=== PATIENT | female | born 2000 | race Hispanic/Latino ===

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

== ENCOUNTER 2022-11-23 14:35 | Outpatient (CLI) | payer OTHER | END 2022-11-23 14:36 | disposition home or self-care (01) | LOC: CSHULT 14:35 | PROVIDERS: ATTEND Family Medicine | DX: Z34.82 Encounter for supervision of other normal pregnancy, second trimester (principal); Z3A.22 22 weeks gestation of pregnancy | CPT/HCPCS: 76805 ==

== ENCOUNTER 2023-03-12 12:57 | Inpatient (IN) | payer OTHER ==
[2023-03-12] MEDS ORDERED: fentaNYL 50 mcg/mL 1 mL Vial SLOW IVP PRN (13:35)
[2023-03-12] MEDS ORDERED: hydrALAZINE 20 MG/ML VIAL SLOW IVP PRN (13:35)
[2023-03-12] MEDS ORDERED: HYDROcodone/Acetaminophen 5/325 mg Tablet PO PRN (13:35)
[2023-03-12] MEDS ORDERED: Ibuprofen 800 MG TAB PO PRN (13:35)
[2023-03-12] MEDS ORDERED: Diphenoxylate HCl/Atropine Tablet PO PRN (13:35)
[2023-03-12] MEDS ORDERED: Ondansetron PF 4 MG/2 ML Vial IVP PRN (13:35)
[2023-03-12] MEDS ORDERED: Misoprostol 200 MCG TAB PR PRN (13:35)
[2023-03-12] MEDS ORDERED: Promethazine HCl 25 MG/ML VIAL IM PRN (13:35)
[2023-03-12] MEDS ORDERED: Lidocaine 1% (PF) 30 ML VIAL SC PRN (13:35)
[2023-03-12] MEDS ORDERED: Carboprost 250 MCG/ML AMP IM PRN (13:35)
[2023-03-12] MEDS ORDERED: Acetaminophen 500 MG TAB PO PRN (13:35)
[2023-03-12] MEDS ORDERED: Tranexamic Acid 1,000 MG/10 ML VIAL IVP PRN (13:35)
[2023-03-12] MEDS ORDERED: Oxytocin 30 units/NS 500 ML 500 ML IV SCH ×3 (13:45)
[2023-03-12 15:24] LABS: Creatinine, Urine 61.86 mg/dL (47-110); Protein, Urine Random Quant Less than 10 mg/dL (1-14)
[2023-03-12] MEDS ORDERED: Misoprostol 100 MCG TAB ONE (15:38)
[2023-03-12 15:46] LABS: Hematocrit 35.5 % (34.9-44.5); Mean Corpuscular HGB CONC 33.8 g/dL (32.0-36.0); Mean Corpuscular Hemoglobin 28.6 pg (27.0-33.0); Mean Corpuscular Volume 84.5 fl (81.6-98.3); Mean Platelet Volume 12.5 fl (7.4-10.4); Platelet Count 237 10x3/uL (150-450); RBC Distribution Width 13.2 % (11.5-14.5); White Blood Cell (WBC) Count 9.5 10x3/uL (3.5-10.5)
[2023-03-12 16:14] LABS: ALT (SGPT) 8 U/L (8-55); AST (SGOT) 14 U/L (5-34); Albumin 3.1 g/dL (3.5-5.0); Alkaline Phosphatase 134 U/L (40-110); Anion Gap 14 mmol/L (10-20); BUN (Urea Nitrogen) 12 mg/dL (7.0-18.7); Bilirubin, Total 0.3 mg/dL (0.2-1.2); Calc. Creatinine Clearance 0 mL/min (70-130); Calcium 9.1 mg/dL (7.8-10.44); Carbon Dioxide 17 mmol/L (22-29); Chloride 109 mmol/L (98-107); Estimated GFR 129; Globulin 3.2 g/dL (2.4-3.5); Glucose 80 mg/dL (70-105); Potassium 4.3 mmol/L (3.5-5.1); Protein, Total 6.3 g/dL (6.0-8.3); Sodium 136 mmol/L (136-145)
[2023-03-12 16:29] LABS: Syphilis Antibody Nonreactive (Nonreactive); Syphilis Antibody Index 0.12 S/CO (<1.00 Non-Reactive)
[2023-03-12 16:31] LABS: HBSAg Index 0.17 S/CO (0-0.99); Hep B Surf Ag - L&D Non-Reactive S/CO (NonReactive)
[2023-03-12 19:11] VITALS: BMI 28.5
[2023-03-12] MEDS ORDERED: Misoprostol 100 MCG TAB PO SCH (23:00)
[2023-03-12] MEDS ORDERED: fentaNYL/Ropivacaine Epidural 0 ML ONE (23:25)
[2023-03-12] MEDS: Lactated Ringer's 1,000 ML IV SCH (23:34)
[2023-03-13] MEDS ORDERED: Ketorolac Tromethamine 30 MG (1 mL) VIAL IVP SCH ×2 (00:15→06:00)
[2023-03-13] MEDS ORDERED: diphenhydrAMINE 25 MG CAP PO PRN (02:39)
[2023-03-13] MEDS ORDERED: Oxytocin 30 units/NS 500 ML 500 ML IV SCH (02:39)
[2023-03-13] MEDS ORDERED: Benzocaine-Menthol 82.5 ML CAN TOP PRN (02:39)
[2023-03-13] MEDS ORDERED: Promethazine HCl 25 MG/ML VIAL IM PRN (02:39)
[2023-03-13] MEDS ORDERED: Lanolin Ointment 7 GM TUBE TOP PRN (02:39)
[2023-03-13] MEDS ORDERED: Bisacodyl 10 MG SUPP PR PRN (02:39)
[2023-03-13] MEDS ORDERED: Milk Of Magnesia 30 ML UDCUP PO PRN (02:39)
[2023-03-13] MEDS ORDERED: Boostrix 0.5 ML (Tdap) VIAL (>/=7 yrs of age) IM ONE (02:39)
[2023-03-13] MEDS ORDERED: Preparation H Ointment 28 GM TUBE PR PRN (02:39)
[2023-03-13] MEDS ORDERED: hydrALAZINE 20 MG/ML VIAL SLOW IVP PRN (02:39)
[2023-03-13] MEDS ORDERED: HYDROcodone/Acetaminophen 5/325 mg Tablet PO PRN (02:39)
[2023-03-13] MEDS ORDERED: Ondansetron PF 4 MG/2 ML Vial IVP PRN (02:39)
[2023-03-13] MEDS: Lactated Ringer's 1,000 ML IV SCH (03:32)
[2023-03-13] MEDS: Ibuprofen 800 MG TAB PO SCH ×3 (05:45→22:11)
[2023-03-13] MEDS: Docusate 100 MG CAP PO SCH ×2 (09:45→20:43)
[2023-03-13] MEDS: Prenatal Vitamin 1 TAB PO SCH (09:45)
[2023-03-13] MEDS: NIFEdipine XL 30 MG ER.TAB PO SCH (09:45)
[2023-03-13] MEDS: Ferrous Sulfate 325 MG TAB PO SCH ×2 (12:02→18:34)
[2023-03-14] MEDS: Ibuprofen 800 MG TAB PO SCH ×2 (06:41→13:44)
[2023-03-14] MEDS: Ferrous Sulfate 325 MG TAB PO SCH ×2 (07:27→18:47)
[2023-03-14] MEDS: Docusate 100 MG CAP PO SCH (08:37)
[2023-03-14] MEDS: Prenatal Vitamin 1 TAB PO SCH (08:37)
[2023-03-14] MEDS: NIFEdipine XL 30 MG ER.TAB PO SCH (09:18)
[2023-03-14 19:31] VITALS: BP 128/77; TEMP 98.3
== END 2023-03-14 20:10 | disposition home or self-care (01) | DRG 807 ==
LOC: CSHLD 12:57 → CSHPED 03-13 02:10
PROVIDERS: ADMIT Family Medicine; ATTEND Family Medicine
PROC: 10E0XZZ Delivery of Products of Conception, External Approach (ICD-10-PCS; principal; 2023-03-12)
PROC: 10907ZC Drainage of Amniotic Fluid, Therapeutic from Products of Conception, Via Natural or Artificial Opening (ICD-10-PCS; 2023-03-13)
DX: O13.4 Gestational [pregnancy-induced] hypertension without significant proteinuria, complicating childbirth (principal); Z37.0 Single live birth; Z3A.38 38 weeks gestation of pregnancy; O69.81X0 Labor and delivery complicated by cord around neck, without compression, not applicable or unspecified
CPT/HCPCS: 36416; 80053; 82570; 84156; 85027; 86780; 86850; 86900; 86901; 87340; 88307; J3010; J7120